=== PATIENT | female | born 1985 | race Caucasian/White ===

== ENCOUNTER 2024-07-12 14:14 | Emergency (ER) | payer MEDICARE, MEDICAID, SELFPAY ==
[2024-07-12 14:56] VITALS: BP 160/98; PULSE 95; RESP 20; TEMP 37; O2SAT 96
--- NOTE | 2024-07-12 14:57 | EKG_ITS ---
[facility] Test Date: 2024-07-12 Pat Name: DIETER SNIDER Department: Room: - Gender: Female Portfolio Administrator: : [id number] Requested By: ED Temporary Provider Order Number: [id number] Reading MD: ED Temporary Provider Measurements Intervals [place] Rate: 94 P: 64 [place]: 151 QRS: 52 QRSD: 99 T: 56 QT: 358 QTc: 448 Interpretive Statements SINUS RHYTHM NONSPECIFIC ST & T-WAVE ABNORMALITY No previous ECG available for comparison /store/S0/[id number]/[id number].pdf
--- NOTE | 2024-07-12 15:59 | PD.EDRME ---
Rapid Medical Screening Exam [facility] Arrival date/time: 07/12/24 14:14 Chief Complaint: Shortness of Breath/Dyspnea Vital signs: Vital Signs Temperature 98.6 F 07/12/24 14:56 Pulse Rate 95 07/12/24 14:56 Respiratory Rate 20 07/12/24 14:56 Blood Pressure 160/98 H 07/12/24 14:56 Pulse Oximetry (%) 96 07/12/24 14:56 Oxygen Delivery Method Room Air 07/12/24 14:56 [facility] Narrative: 39-year-old female presents to the emergency department brought in by parent with complaint of shortness of breath, fatigue, weakness for the past 4 days. Parent also patient has a history of asthma and earlier today was complaining of difficulty with inspiration but worse with expiration. Parent states there has been no improvement with her rescue inhaler. She also uses Breo twice a day and Singulair at night.
--- NOTE | 2024-07-12 16:01 | XR_ITS ---
Examination: PA lateral chest 2 views Technique: Upright PA lateral chest 2 views Exam date and time: July 12, 2024 1637 hrs. Indications: Chest pain today. Findings: No significant cardiac enlargement Suspicious for early infiltrate in the right lower lobe No pulmonary edema Intact osseous structures Impression: Suspicious for early right base pneumonia
[2024-07-12] MEDS: dexAMETHasone 4 MG TABLET 10 MG PO (16:13)
[2024-07-12] MEDS: ALBUTEROL/IPRATROPIUM (Duoneb) RT SOL 3 ML NEBU INH (16:17)
[2024-07-12 16:20] VITALS: PULSE 91; RESP 24; O2SAT 100
[2024-07-12 17:12] LABS: Basophils % (Auto) 0 % (0-2.5); Eosinophils % (Auto) 0 % (0-10); Hematocrit 39.6 % (36.0-46.0); Hemoglobin 13.8 g/dL (12.0-16.0); Immature Granulocytes % (Auto) 0 % (0-0); Immature Granulocytes Auto 0.02 Thou/mm3 (0.00-0.00); Lymphocytes # (Auto) 1.8 Thou/mm3 (1.0-4.8); Lymphocytes % (Auto) 19 % (10-50); Mean Corpuscular HGB Conc 34.8 g/dl (31.0-37.0); Mean Corpuscular Volume 89 fL (80-100); Monocytes # (Auto) 0.9 Thou/mm3 (0.0-0.8); Monocytes % (Auto) 10 % (0-12); Neutrophils # (Auto) 6.5 Thou/mm3 (1.8-7.7); Neutrophils % (Auto) 70 % (37-80); Nucleated Red Blood Cell % 0 /100 WBC (0); Platelet Count 245 Thou/mm3 (140-440); RDW Standard Deviation 38.8 fL (36.4-46.3); Red Blood Count 4.45 Miln/mm3 (4.00-5.20); White Blood Count 9.2 Thou/mm3 (3.6-11.0)
[2024-07-12 17:28] LABS: B-Type Natriuretic Peptide < 20 pg/mL (0-100)
[2024-07-12 17:29] LABS: Alanine Aminotransferase 26 U/L (10-49); Albumin, Serum 5.2 gm/dL (3.5-5.0); Albumin/Globulin Ratio 1.9 (1.2-2.2); Alkaline Phosphatase 62 U/L (46-116); Anion Gap 10 (7-16); Aspartate Amino Transferase 20 U/L (0-34); BUN/Creatinine Ratio 11 Ratio (12-20); Bilirubin,Total 0.2 mg/dL (0.3-1.2); Blood Urea Nitrogen 11 mg/dL (9-23); Calcium 9.7 mg/dL (8.3-10.6); Calcium (Corrected) 9.7 mg/dL (8.5-10.1); Carbon Dioxide 25.3 mMol/L (20.0-31.0); Chloride 103 mMol/L (98-107); Globulin 2.7 gm/dL (2.3-3.5); Glucose 98 mg/dL (74-106); Lipase 50 U/L (12-53); Osmolality,Calculated 275 (275-295); Sodium 138 mMol/L (136-145); Total Protein 7.9 gm/dL (5.7-8.2); Troponin I < 0.002 ng/mL (0.0-0.045); eGFR > 60 See Note
--- NOTE | 2024-07-12 18:36 | EDNOTE_ITS ---
ED SOB =RME/HPI General Chief Complaint: Shortness of Breath/Dyspnea Stated Complaint: PAINFUL TO BREATH X TODAY Time Seen by Provider: 07/12/24 18:39 Arrival date/time: 07/12/24 14:14 39 year old female present emergency room with c/o of flu like sx since last Sunday. SEVERITY: Symptoms are described as being severe with limitations on activities of daily living CONTEXT: The patient is unable to identify any inciting events. DURATION/TIMING: The symptoms started approximately 9 days ASSOCIATED SYMPTOMS: The patient is unable to identify any other associated symptoms. MODIFYING FACTORS: The patient is unable to identify any alleviating or aggravating symptoms. PERTINENT ROS: no pleuritic pain, no ripping or tearing sensations, denies any lower extremity edema and no unilateral swelling, no chest pain/shortness of breath no nausea,vomiting, diarrhea, no dizziness/headache no rash no loc/s yncope episode no abd/back pain no dsyuria,urgency,frequency REVIEW OF SYSTEMS: See History of Present Illness - with the exception of those mentioned in the history of present illness, all other systems reviewed and reported as negative GENERAL: In general the patient is awake, interactive, in an emergency department rcoal run. HEAD/EYES/EARS/NOSE/THROAT: normo-cephalic, atraumatic, mucus membranes are moist, anicteric, palpebral conjunctiva is pink, trachea is midline. CARDIOVASCULAR: regular rate and regular rhythm, no murmurs, heart sounds are not distant, strong pulses in all four extremities that are equal and symmetric bilateral upper and lower extremities, normal capillary refill. CHEST/PULMONARY: normal chest rise and fall, good air movement, clear to auscultation bilaterally, normal inspiratory to expiratory ratios without evidence of respiratory distress. NECK: No midline/Paraspinal tenderness, no step off ROM/Strenght intact No Kernig and bruzinski sign. No trauma ABDOMEN: soft, not tender, no masses appreciated BACK: normal range of motion without pain. NEUROLOGICAL: cranio-facial features are symmetric, moves all four extremities equally without obvious limitations or weakness. EXTREMITY: no tenderness to palpation over the long bones or large joints of the bilateral upper and lower extremities, no joint swelling, no joint erythema, no signs of trauma, no unilateral leg swelling and no peripheral edema. SKIN: warm, dry, well-perfused, no jaundice, no rash, no telangiectasias or petechia. PSYCH: calm, cooperative, no evidence of psychosis or agitation RME / HPI RME / HPI Narrative: 39-year-old female presents to the emergency department brought in by parent with complaint of shortness of breath, fatigue, weakness for the past 4 days. Parent also patient has a history of asthma and earlier today was complaining of difficulty with inspiration but worse with expiration. Parent states there has been no improvement with her rescue inhaler. She also uses Breo twice a day and Singulair at night. Related Data Home Medications ?Medication ?Instructions ?Recorded ?Confirmed carbamazepine 200 mg tablet 400 mg PO BID #0 tabs 01/08/16 02/16/19 (Tegretol) estradiol 1 mg tablet (Estrace) 2 mg PO QDAY #0 tabs 01/08/16 02/16/19 lurasidone 40 mg tablet (Latuda) 80 mg PO HS ##0 05/08/16 02/16/19 atorvastatin 20 mg tablet 20 mg PO QPM 02/16/19 02/16/19 lisinopril 10 mg tablet 10 mg PO QDAY 02/16/19 02/16/19 Previous Rx's ?Medication ?Instructions ?Recorded amoxicillin 875 mg-potassium 1 tab PO BID #10 tabs 02/18/19 clavulanate 125 mg tablet (Augmentin) ibuprofen 600 mg tablet 600 mg PO Q6H PRN Pain Scale 1-3 02/18/19 (Mild #20 tabs azithromycin 500 mg tablet 500 mg PO QDAY 5 days #4 tabs 07/12/24 methylprednisolone 4 mg tablets in 4 mg PO .as directed #21 tabs 07/12/24 a dose pack (Medrol (Naun)) Allergies Allergy/AdvReac Type Severity Reaction Status Date / Time cefaclor Allergy Severe HIVES Verified 07/12/24 14:16 chloral hydrate Allergy Severe HALLUCINATE Verified 07/12/24 14:16 S diazepam Allergy Severe GOES Verified 07/12/24 14:16 BERSERK grass pollen Allergy Severe Swelling Verified 07/12/24 14:16 of Lip/Tongue/Throat meperidine Allergy Severe GOES Verified 07/12/24 14:16 BERSERK Sulfa (Sulfonamide Allergy Severe HIVES Verified 07/12/24 14:16 Antibiotics) [place] Allergy Severe HIVES Uncoded 07/12/24 14:16 [place] Allergy Severe HIVES Uncoded 07/12/24 14:16 Course Course Course Narrative: Patient presenting with cough and fever.? VS were reviewed and showed ? ?Lung exam noted to have wheezing .? Obtained and reviewed CXR, which showed PNA.? ?At this time, it is felt that the most likely explanation for the patient's symptoms is pneumonia.? I also considered URI, bronchitis, pneumonia, pneumothorax, PE, but this appears less likely considering the data gathered thus far.? Patient was provided decadron, azithromycin while in the ED.? Supportive treatment options were discussed.? Patient to follow up with PCP closely.?? Plan:? Prescribed azithromycin Advised Pt on supportive measures, including smoking cessation and avoidance of second-hand smoke, OTC acetaminophen or ibuprofen for fever and body aches, advancement of fluids as tolerated, rest, and frequent hand-washing w/ soap and water. Instructed Pt to monitor for shaking chills or T>100.5degF, persistent cough >7- 10d, hemoptysis, delirium or confusion, cyanosis, and respiratory distress.? Instructed Pt to f/up w/ PCP or ETC should Sx worsen or not improve.? Quality Measures none Orders Category Date Time Status EKG (ED ONLY) *Do not use* NOW Care 07/12/24 14:57 Completed CXR2 [XR chest 2V] Stat Exams 07/12/24 16:01 Completed EKG (ED Only) Stat Exams 07/12/24 14:57 Draft BNP [B-Type Natriuretic Peptide] Stat Lab 07/12/24 17:01 Completed CBC Stat Lab 07/12/24 17:01 Completed CMP [Comprehensive Metabolic Panel] Stat Lab 07/12/24 17:01 Completed Lipase Stat Lab 07/12/24 17:01 Completed Troponin I Stat Lab 07/12/24 17:01 Completed Albuterol/Ipratr Rt Kira [Duoneb Rt Kira] Med 07/12/24 16:01 Discontinued 3 ml INH X1 ONE Azithromycin Po [Zithromax PO] Med 07/12/24 18:39 Discontinued 500 mg PO X1 ONE dexAMETHasone TAB [Decadron Tab] Med 07/12/24 16:01 Discontinued 10 mg PO X1 ONE Vital Signs Vital signs: Vital Signs Temperature 98.6 F 07/12/24 14:56 Pulse Rate 95 07/12/24 14:56 Respiratory Rate 20 07/12/24 14:56 Blood Pressure 160/98 H 07/12/24 14:56 Pulse Oximetry (%) 96 07/12/24 14:56 Oxygen Delivery Method Room Air 07/12/24 14:56 Procedures -ED EKG Interpretation #1: Date of EK07/12/24 Rate: 94 Interpretation: Reviewed by me EKG Impression: Normal sinus rhythm, No acute ST-T changes, No ectopy and No ischemic changes Shortness of Breath / Dyspnea Patient data External records reviewed:: None Clinical information provided by:: patient Social determinants that could affect healthcare access:: none Patient has the following chronic illnesses:: n/a How is presenting disease/condition affected by chronic disease/condition?: uneffected by Evaluation data The following diagnostics were reviewed and interpreted by me:: lab results, radiology exam(s) and EKG tracing(s) Lab and/or radiology exams considered but not ordered:: none Interpretation Summary: xray: + pna + flu a/b cbc/cmp no acute findings trop negative Medications / Prescriptions Medications or Prescriptions considered but not ordered:: none Medication administrations:: Medication Administration History Discontinued Medications Albuterol/Ipratropium (Albuterol/Ipratropium (Duoneb) Rt Kira 3 Ml Nebu) 3 ml INH X1 ONE Stop: 07/12/24 16:02 Last Admin: 07/12/24 16:17 Dose: 3 ml Documented By: LO Azithromycin (Azithromycin 250 Mg Tablet) 500 mg PO X1 ONE Stop: 07/12/24 18:40 Dexamethasone (Dexamethasone 4 Mg Tablet) 10 mg PO X1 ONE; Protocol Stop: 07/12/24 16:02 Last Admin: 07/12/24 16:13 Dose: 10 mg Documented By: OA none Consultations Consultation(s) initiated? (list below): No Diagnosis Shortness of Breath Differential Diagnosis: acute exacerbation of chronic obstructive airways disease, congestive heart failure, community acquired pneumonia, asthma with exacerbation and other (flu a/b, mi/stemi, dehydration ) Most likely diagnosis given after review of the tests above:: pna flu a/b Admission Indicated Admission indicated?: not indicated Admission Request Was there a request for admission?: No Disposition Plan Disposition Plan: Discharge Discharge Attestation Discharge Attestation: The patient and all family members were given an opportunity to ask questions and understood the discharge instructions. Discharge instructions specifically effects, indications for sooner follow up or return to the emergency department, and the expected course of current diagnosis. Patient condition: Stable Discharge Plan Plan Patient Disposition: HOME (Self Care) Health Concerns: Follow with PMD as directed Take tylenol or motrin as need Return to ED if sx worsen Prescriptions/Referrals Prescriptions/Med Rec: New azithromycin 500 mg tablet 500 mg PO QDAY 5 Days Qty: 4 0RF methylprednisolone [Medrol (Naun)] 4 mg tablets,dose pack 4 mg PO .as directed Qty: 21 0RF No Action carbamazepine [Tegretol] 200 MG tablet 400 mg PO BID Qty: 0 estradiol [Estrace] 1 MG tablet 2 mg PO QDAY Qty: 0 Latuda 40 MG tablet 80 mg PO HS Qty: 0 atorvastatin 20 mg Tablet 20 mg PO QPM lisinopril 10 mg Tablet 10 mg PO QDAY ibuprofen 600 mg Tablet 600 mg PO Q6H PRN (Reason: Pain Scale 1-3 (Mild) Qty: 20 0RF amoxicillin-pot clavulanate [Augmentin] 875-125 mg tablet 1 tab PO BID Qty: 10 0RF Referrals: Sherine Pina FNP [Primary Care Provider] - In 1 week Problem List Clinical Impression: Pneumonia, Influenza Patient/Caregiver Discharge Instructions Education Materials: ED Influenza (Adult), ED Pneumonia (Adult) Print Language: Algerian Stand Alone Forms: [employer] Award Info., Work/School Release, Patient Portal Info Letter
[2024-07-12] MEDS: AZITHROMYCIN 250 MG TABLET 500 MG PO (18:46)
== END 2024-07-12 19:44 | disposition home or self-care (01) ==
PROVIDERS: Physician Assistant; Emergency Provider Emergency Medicine; PCP Nurse Practitioner
DX: J11.00 Influenza due to unidentified influenza virus with unspecified type of pneumonia (principal)
CPT/HCPCS: 36415; 71046; 80053; 83690; 83880; 84484; 85025; 93005; 94640; 99283; A9270; J8540